=== PATIENT | male | born 1975 | race Two or more races ===

== ENCOUNTER 2024-07-12 10:28 | Emergency (ER) | payer BC, OTHER ==
[~2024-07-12] VITALS: Ht 177.8 cm; Wt 135.3 kg
[2024-07-12 11:14] VITALS: BP 160/96; PULSE 65; RESP 20; TEMP 98; O2SAT 95
[2024-07-12 11:45] LABS: COVID19 ANTIGEN SOFIA FIA NEGATIVE (NEGATIVE); Rapid Influenza A Negative (Negative); Rapid Influenza B Negative (Negative)
[2024-07-12] MEDS ORDERED: BENZ100C97 PO (12:42)
[2024-07-12] MEDS ORDERED: ACET500T58 PO (12:42)
[2024-07-12] MEDS ORDERED: ONDA-155 PO (12:42)
--- NOTE | 2024-07-12 12:42 | ED.PDOC ---
GI ASSESSMENT HPI Comments 49-year-old male with a MHx flu-like symptoms. Exposed to influenza a. Also complains of nausea vomiting diarrhea x1 day Not taking medications for the symptoms listed above Denies fevers chills night sweats unintentional weight loss Denies nausea vomiting diarrhea Denies blood in the stool Denies sick contact with similar symptoms Denies new foods/medications Denies family history of GI cancer Chief Complaint: Flu like Time Seen by MD: 10:51 Primary Care Provider: NONE Reviewed Notes: Nurses Notes, Medications, Allergies Allergies: Coded Allergies: NO KNOWN ALLERGIES (Unverified , 07/12/24) Home Meds Active Scripts Acetaminophen (Acetaminophen) 500 Mg Tab, 500 MG PO Q6HP PRN for 10 Days, #40 TAB 0 Refills Prov:ESTHER FONSECA NP 07/12/24 Benzonatate (Benzonatate) 100 Mg Cap, 1 CAP PO TID for 10 Days, #30 CAP 0 Refills Prov:ESTHER FONSECA PATIENT SERVICES COORDINATOR 07/12/24 Benzonatate (Benzonatate) 100 Mg Cap, 1 CAP PO TID for 10 Days, #30 CAP 0 Refills Prov:ESTHER FONSECA PATIENT SERVICES COORDINATOR 07/12/24 Ondansetron HCl (Ondansetron) 4 Mg Tab, 4 MG PO Q8HP PRN for 3 Days, #9 TAB 0 Refills Prov:ESTHER FONSECA PATIENT SERVICES COORDINATOR 07/12/24 Information Source: Patient Mode of Arrival: Ambulatory Family History Family History: Reviewed,noncontributory to illness Social History Smoker: Non-Smoker Alcohol: Denies ETOH Use Drugs: Denies Drug Use All Other Systems: Reviewed and Negative (Per HPI) Physical Exam General Appearance: No Apparent Distress, Normal HEENT: Normal ENT Inspection, Pharynx Normal, TMs Normal Neck: Full Range of Motion, Non-Tender, Normal, Normal Inspection Respiratory: Chest Non-Tender, Lungs Clear, No Accessory Muscle Use, No Respiratory Distress, Normal Breath Sounds Cardiovascular: No Edema, No JVD, No Murmur, No Gallop, Normal Peripheral Pulses, Regular Rate/Rhythm Breast Exam: Deferred Gastrointestinal: No Organomegaly, Non Tender, No Pulsatile Mass, Normal Bowel Sounds, Soft Genitalia: Deferred Pelvic: Deferred Rectal: Deferred Extremities: No calf tenderness, Normal capillary refill, Normal inspection, Normal range of motion, Non-tender, No pedal edema Musculoskeletal : Apperance: Normal Neurologic: Alert, No Motor Deficits, Normal Affect, Normal Mood, No Sensory Deficits Cerebellar Function: Normal Reflexes: Normal Skin: Dry, Normal Color, Warm Lymphatic: No Adenopathy Was a procedure done? Was a procedure done?: No GI differential Dx Differential Diagnosis: Gastroenteritis, Viral X-Ray, Labs, Meds, VS Vital Signs Date Time Temp Pulse Resp B/P (MAP) Pulse Ox O2 Delivery O2 Flow Rate FiO2 07/12/24 11:14 98.0 65 20 160/96 (117) 95 98.0 07/12/24 11:14 65 20 95 Room Air 07/12/24 10:38 98.0 65 20 160/96 (117) 95 Lab Test 07/12/24 10:41 Range/Units Influenza Type A Antigen Negative Negative Influenza Type B Antigen Negative Negative SARS-CoV-2 Antigen (Rapid) Negative NEGATIVE X-Ray, Labs, Meds, VS Comment The acute presentation and exam are most consistent with viral gastroenteritis. No vomiting or diarrhea while here.Tolerating oral liquids and repeat abdominal exam is benign. Patients GI symptoms likely due to viral illness or food-borne illness. There is no evidence of sepsis or systemic toxicity or significant dehydration. No risk factors such as recent international travel , blood in stool, or antibiotic use so less likely giardia, bacterial dysentery, inflammatory bowel disease, upper or lower GI bleeding, C difficile. Patient also has no evidence of peritonitis, surgical condition or ischemic colitis. After a period of observation and investigation, patient remained stable without new complaints. Considering patients nontoxic appearance, benign abdominal exam and that they are tolerating oral fluids, I feel they are a reasonable outpatient candidate. They will be discharged with outpatient follow up and return to Emergency Department precautions as per my usual custom and practice. Discussed diagnosis and treatment with patient. Recommend clear liquid to bland/BRAT diet, avoiding lactose and animal products and probiotics as well as importance of oral hydration and consider acidophilus OTC. Return precautions if more than 6 stools per day, not voiding regularly, unable to take oral fluids, high fever, severe weakness or fainting, dry mucous membranes or other signs of dehydration, persisting or increasing abdominal pain, blood in stool or vomit, or failure to improve in 1-2 days. Patient understands diagnosis and instructions and had no further questions. Time of 1ST Reevaluation: 12:30 Reevaluation 1ST: Improved Patient Education/Counseling: Diagnosis, Treatment Family Education/Counseling: Diagnosis, Treatment Departure 1 Departure Time of Disposition: 12:40 Impression: Primary Impression: Gastroenteritis Disposition: HOME / SELF CARE / HOMELESS Condition: Stable Additional Instructions: Discharge Note: Drink plenty of fluids. Follow up with your primary Dr. If your condition becomes worse call and follow up with your primary DrLuis for instructions or return to the ER if needed. Thank you for visiting [facility]. e-Prescriptions Acetaminophen (Acetaminophen) 500 Mg Tab 500 MG PO Q6HP PRN for 10 Days, #40 TAB 0 Refills Prov: ESTHER FONSECA NP 07/12/24 Benzonatate (Benzonatate) 100 Mg Cap 1 CAP PO TID for 10 Days, #30 CAP 0 Refills Prov: ESTHER FONSECA NP 07/12/24 Benzonatate (Benzonatate) 100 Mg Cap 1 CAP PO TID for 10 Days, #30 CAP 0 Refills Prov: ESTHER FONSECA NP 07/12/24 Ondansetron HCl (Ondansetron) 4 Mg Tab 4 MG PO Q8HP PRN for 3 Days, #9 TAB 0 Refills Prov: ESTHER FONSECA NP 07/12/24 Discharged With: Self Critical Care Note Critical Care Time?: No Stability Stability form required: No Heart Score Heart Score: Heart Score Response (Comments) Value History N/A 0 EKG N/A 0 Age N/A 0 Risk Factors N/A 0 Troponin N/A 0 Total 0 ESTHER FONSECA NP Jul 12, 2024 12:42
== END 2024-07-12 12:48 | disposition home or self-care (01) ==
LOC: ER 10:28
DX: K52.9 Noninfective gastroenteritis and colitis, unspecified (principal); Z20.822 Contact with and (suspected) exposure to COVID-19; Z79.899 Other long term (current) drug therapy
CPT/HCPCS: 36415; 87426; 87804